=== PATIENT | female | born 1960 | race African-American/Black ===

== ENCOUNTER → 2016-11-18 | Outpatient (CLI) | payer BC ==
[~2016-11-18] VITALS: Ht 157.5 cm; Wt 127.9 kg
[~2016-11-18] MED LIST: AMLO10TA4 PO; AMLO5TAB4 PO; Aspirin PO; Hydrochlorothiazide PO; LIDOCAINE 1% / SOD BICARB 8.4% 20 ML VIAL. IJ ONE; LOSA1TAB16 PO; LOSA1TAB17 PO; LOSA50TA2 PO; METF1000 PO
[2016-11-18 13:53] VITALS: BP 157/75
--- NOTE | 2016-11-18 16:27 | RAD ---
EXAM: Ultrasound guided fine-needle laceration of the right thyroid nodule. HISTORY: Right thyroid nodule. Ultrasound-guided fine-needle aspiration is requested. COMPARISON: None. FINDINGS: The procedure along with its risks and benefits were explained to the patient. She agreed to proceed. A timeout procedure was performed. Sonographic images of the right thyroid lobe reveals a 3.2 x 2.3 x 2.3 cm hypoechoic, predominantly solid nodule in the right thyroid interpolar region. The overlying skin was sterilely prepped and infiltrated with 1% lidocaine for local anesthesia. Under ultrasound guidance, 4 passes were made into the nodule using 25-gauge needles. One pass was made using echotexture 5. These were hand delivered to pathology. Instrumentation was withdrawn and a sterile dressing placed. There were no complications. IMPRESSION: 1. Successful ultrasound guided fine-needle aspiration of a right thyroid nodule.
== END | disposition home or self-care (01) ==
LOC: US 13:30
PROVIDERS: ATTEND Surgery
DX: E04.1 Nontoxic single thyroid nodule (principal)
CPT/HCPCS: 60300; 76942

== ENCOUNTER 2018-02-05 16:22 | Emergency (ER) | payer OTHER, BC ==
[2018-02-05] MEDS: HYDROcodone/APAP 5/325MG 1 TAB TABLET PO (18:09)
[2018-02-05] MEDS: NAPROXEN 500 MG TABLET PO (18:10)
== END 2018-02-05 19:10 | disposition home or self-care (01) ==
LOC: ER 19:10
DX: S63.617A Unspecified sprain of left little finger, initial encounter (principal); S40.012A Contusion of left shoulder, initial encounter; I10 Essential (primary) hypertension; E11.9 Type 2 diabetes mellitus without complications; M19.012 Primary osteoarthritis, left shoulder; Z88.8 Allergy status to other drugs, medicaments and biological substances; Z91.041 Radiographic dye allergy status; W01.0XXA Fall on same level from slipping, tripping and stumbling without subsequent striking against object, initial encounter; Y93.89 Activity, other specified; Y99.8 Other external cause status; Y92.214 College as the place of occurrence of the external cause
CPT/HCPCS: 29130; 73030; 73130; 99284-25

== ENCOUNTER → 2021-01-05 | Outpatient (CLI) | payer MEDICARE, OTHER ==
[2018-02-05 17:00] VITALS: BP 188/107
[~2021-01-05] MED LIST changes: +CYCL10TA2 PO; +GABA300C18 PO; +HYDR-2145 PO; +HYDR-3164 PO; -LIDOCAINE 1% / SOD BICARB 8.4% 20 ML VIAL. IJ ONE; +LOSA-73 PO; -LOSA1TAB16 PO; -LOSA1TAB17 PO; +LOSA1TAB19 PO; +LOSA1TAB22 PO; -LOSA50TA2 PO; +NAPR500T8 PO; +OXYB10TA26 PO
--- NOTE | 2021-01-05 13:15 | PDOC1 ---
INITIAL PAIN CONSULT DATE OF SERVICE: DOS: DATE: 01/05/21 TIME: 13:10 CHIEF COMPLAINT: Chief Complaint: Low back and right lower extremity pain HISTORY OF PRESENT ILLNESS: 60-year-old female presents history of pain low back right lower extremity since June 2020 patient reports it started gradually not the result of any specific injury or accident that she is aware but increasing now across the low back into the right lower extremity mostly posterior gluteus posterior lateral thigh lateral anterior thigh anteromedial thigh into the ankle into the big toe on the right foot. Patient reports is worse with walking standing changing positions describes as numbness and radiating pain that sharp and aching in the back and shooting into the right lower extremity patient reports no significant pain in the left lower extremity but across the low back bilaterally patient reports it wakes her from sleep about 2-3 times at night can affect her bowel bladder control but no incontinence, does affect her ability to walk using a cane or roller walker when she can has a cane with her today. Patient had physical therapy also chiropractic treatment most recently which made the pain actually worse she also tried oral steroids, hydrocodone and Mobic as well as Neurontin the Mobic helped some but the hydrocodone Neurontin and steroids were not helpful. Patient continues to do stretching and strength exercises from her physical therapy daily. Patient rates her disability rating 0-10 10 being the worst is a 7 with him home responsibilities recreation social activity 8 with occupation 9 with self-care and 5 with life support activities. Patient did have an MRI scan lumbar spine showing multilevel degenerative changes significant central and lateral stenosis from L3-4 through L5-S1 with severe central and lateral stenosis at L4-5 broad-based disc bulging compression of the L5 nerve roots in the lateral recesses as well as the exiting L4 nerve roots in the foramina bilaterally left greater than right. PAST MEDICAL HISTORY: PMH: Arthritis, hypertension, obesity, type 2 diabetes, cigarette smoking PREVIOUS SURGERIES: Past Surgical Hx: Left rotator cuff repair x2, tubal ligation, tonsillectomy CURRENT MEDICATIONS: Current Meds: Active Scripts Medications Dose Route/Sig Max Daily Dose Days Date Category Gabapentin (Gabapentin) 300 Mg Capsule 300 Mg PO TID 01/05/21 Reported Oxybutynin Chloride Er (Oxybutynin Chloride) 10 Mg Tab.er.24 1 Tab PO DAILY 01/05/21 Reported Hydrochlorothiazide Tablet (Hydrochlorothiazide) 25 Mg Tablet 25 Mg PO DAILY 01/05/21 Reported Norvasc (Amlodipine Besylate) 10 Mg Tablet 10 Mg PO DAILY 11/18/16 Reported Losartan-Hctz 100-25 Mg Tab (Losartan/Hydrochlorothiazide) 1 Each Tablet 1 Each PO DAILY 11/18/16 Reported Glucophage (Metformin Hcl) 1,000 Mg Tablet 1 Tab PO BID 04/20/15 Reported ALLERGIES; Allergies: Coded Allergies: Mpiumpg-Sum-Ids Reductase Inhibitor (Unverified Allergy, Intermediate, MUSCLE PAIN, 05/13/16) lisinopril (Verified Allergy, Intermediate, cough, 05/13/16) FAMILY HISTORY: Family Hx: Hypertension, diabetes SOCIAL HISTORY: Social Hx: Patient is under alcohol quit smoking 2015 does not use any illegal illicit recreational drugs single lives 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 PHYSICAL EXAM: VS: Blood pressure is 175/92 pulse 84 respirations 16 temperature is 98.2 F height is 5 feet 2 inches weight is 326 pounds PE: PHYSICAL EXAMINATION: GENERAL: The patient is awake, alert, oriented, appropriate, very pleasant demeanor HEENT: Shows normocephalic, atraumatic. Extraocular movements are intact and symmetrical. Oral cavity: Mucous membranes moist and pink. Dentition is intact. NECK: Shows anterior throat supple without palpable lymphadenopathy noted. Swallow reflex symmetrical. CHEST: Shows normal on inspection. Breath sounds are clear bilaterally, distant but no rales rhonchi or wheezes auscultated. HEART: Shows S1, S2 clear. No murmurs auscultated. ABDOMEN: Soft, nontender, nondistended, obese. No palpable organomegaly is noted. No rebound or guarding demonstrated. BACK: Shows spine grossly in the midline. Normal-appearing cervical lordotic curvature. There is slightly increased thoracic kyphosis, some minor flattening of the lumbar lordotic curvature. Lumbar paraspinous muscles show symmetrical on inspection, on palpation shows some moderate tenderness diffusely throughout the upper, middle and lower distribution of the paraspinous muscles bilaterally and also into the lower thoracic paraspinous musculature, firm and tender, but without specific trigger points, without radiation of pain. The patient has good rotational motion of the lumbar spine, both laterally as well as extension and flexion without significant difficulty. No tenderness over the spinous processes, sacrum or sacroiliac regions. EXTREMITIES: Lower extremities show deep tendon reflexes 1+ in the patellar and tendo calcaneus tendons. Motor exam is 4 on a scale of 5 with right dorsiflexion, extension, quadriceps and hamstring flexion and 5/5 on the left. Peripheral pulses are 1+ posterior tibial. No peripheral edema is noted bilaterally. Lower extremities are warm and dry to touch, equal in color and appearance. Straight leg raise noted to be positive on the right about 35 degrees, left side is []. Gaenslen's and Donn's maneuvers are negative bilaterally as well. The patient is able to stand, stand on her toes that see if difficulty loss of balance walks with a shuffling gait does appear to favor the right lower extremity to a fair extent, using a cane in her left hand to ambulate. SKIN: Shows warm and dry, good turgor. No edema. No sores, rashes or bruising throughout. IMPRESSION: Impression: 60-year-old female with 6-month history low back right lower extremity pain and radicular fashion MRI scan lumbar spine as noted Obesity Hypertension Arthritis Diabetes Plan: Options were discussed with patient including conservative medical management physical therapies interventional techniques. Patient elects interventional techniques. We discussed a lumbar epidural steroid ejections description as well as anatomical models described procedure. Patient wait for preauthorization with her insurance provider and we will plan on translaminar L4-5 level lumbar epidural steroid injection once this is obtained. In the meantime patient will continue with Mobic 15 mg patient was given instructions well side effects aware with the medication, and daily exercises and stretching as she is currently doing. SORAYA JAY MD Jan 05, 2021 13:15
== END | disposition home or self-care (01) ==
LOC: PNCL 10:38
PROVIDERS: ATTEND Anesthesiology
DX: M54.5 Low back pain (principal); M79.604 Pain in right leg; M19.90 Unspecified osteoarthritis, unspecified site; I10 Essential (primary) hypertension; E11.9 Type 2 diabetes mellitus without complications; E66.9 Obesity, unspecified; G47.30 Sleep apnea, unspecified; Z87.891 Personal history of nicotine dependence; Z98.51 Tubal ligation status; Z98.890 Other specified postprocedural states; Z79.84 Long term (current) use of oral hypoglycemic drugs; Z79.899 Other long term (current) drug therapy; Z88.8 Allergy status to other drugs, medicaments and biological substances; Z82.49 Family history of ischemic heart disease and other diseases of the circulatory system; Z83.3 Family history of diabetes mellitus
CPT/HCPCS: G0463

== ENCOUNTER → 2021-01-19 | Outpatient (CLI) | payer OTHER ==
[2018-02-05 17:00] VITALS: BP 188/107
[~2021-01-19] MED LIST changes: +IOHEXOL 180 MG/ML 10 ML VIAL. ONE; +methylPREDNISolone ACETATE 40 MG/ML VIAL. ONE; +methylPREDNISolone ACETATE 80 MG/ML VIAL. ONE
--- NOTE | 2021-01-19 10:05 | PDOC4 ---
PROCEDURE Procedure Patient was consented for lumbar epidural steroid injection. Risks were dis cussed including but not limited to: Bleeding, infection, possibility of epidural hematoma and subsequent neurological compromise, dural puncture, headaches, spinal cord and/or nerve damage, side effects of steroid medication, and poor results regarding pain control. Patient understands and wished to proceed. Procedure is lumbar epidural steroid injection under local anesthetic using sterile prep and drape at the L4-5 level using C-arm fluoroscopic guidance in both AP and lateral views medications injected is 120 mg Depo-Medrol + 10 mL preservative-free normal saline and 2 mL contrast- condition at discharge is stable patient tolerated procedure well had no complications. SORAYA JAY MD Jan 19, 2021 10:05
--- NOTE | 2021-01-19 10:05 | PDOC ---
Progress Note - Pain Clinic Date of Service: DOS: DATE: 01/19/21 TIME: 10:02 Diagnosis: Dx: Lumbar radiculopathy with lumbar degenerative disc disease and lumbar spinal stenosis History or Present Illness: HPI: 60-year-old female returns follow-up status post initial evaluation preauthorization for lumbar epidural steroid injection. Patient is obtained this now would like to proceed. Patient reports still significant pain in the low back and bilateral lower extremities worse on the right than the left with walking standing changing positions. Patient reports has been using her walker more frequently instead of a cane as she feels more stable with this and has it with her today. Patient describes the pain as tingling and burning in the low back radiating shooting the legs mostly on the right side posterior gluteus lateral thigh anterior thigh medial thigh medial lower legs patient reports radiating constant with activity better with sitting or laying down but has been waking her from sleep about every 2-3 hours over the past week or so patient reports her pain over the past weeks been a 10 on scale 10 is worst 8 on average 8 its least as an 8 today. Patient reports no new motor or sensory deficits no new bowel or bladder incontinence or other complaints. Physical Exam: VS: Blood pressure is 132/77 pulse 87 respiration 16 temperature 98.1 F weight is 325 pounds PE: PHYSICAL EXAMINATION: GENERAL: The patient is awake, alert, oriented, appropriate, very pleasant demeanor HEENT: Shows normocephalic, atraumatic. Extraocular movements are intact and symmetrical. Oral cavity: Mucous membranes moist and pink. NECK: Shows anterior throat supple without palpable lymphadenopathy noted. Swallow reflex symmetrical. CHEST: Shows normal on inspection. Breath sounds are clear bilaterally. HEART: Shows S1, S2 clear. No murmurs auscultated. ABDOMEN: Soft, nontender, nondistended, obese. No palpable organomegaly is noted. BACK: Shows spine grossly in the midline. Normal-appearing cervical lordotic curvature. There is slightly increased thoracic kyphosis, some minor flattening of the lumbar lordotic curvature. Lumbar paraspinous muscles show symmetrical on inspection, on palpation shows some moderate tenderness diffusely throughout the upper, middle and lower distribution of the paraspinous muscles, but without specific trigger points, without radiation of pain. The patient has good rotational motion of the lumbar spine, both laterally as well as extension and flexion without significant difficulty. No tenderness over the spinous processes, sacrum or sacroiliac regions. EXTREMITIES: Lower extremities show deep tendon reflexes 1 in the patellar and tendo calcaneus tendons. Motor exam is 4 on a scale of 5 with right dorsiflexio n, extension, quadriceps and hamstring flexion and 5/5 on the left. Peripheral pulses are 1 posterior tibial. No peripheral edema is noted bilaterally. Lower extremities are warm and dry to touch, equal in color and appearance. SKIN: Shows warm and dry, good turgor. No edema. No sores, rashes or bruising throughout. Procedure: Procedure: Options discussed with the patient. Patient chart reviews her current medication regimen updated current review of systems updated today as well. We will proceed with a lumbar epidural steroid injection stable fluoroscopic guidance. Risks were discussed including but not limited to: Bleeding, infection, possibility of epidural hematoma and subsequent neurological compromise, dural puncture, headaches, spinal cord and/or nerve damage, side effects of steroid medication, and poor results regarding pain control. Patient understands and wished to proceed. Patient will return to clinic in approximately 2 weeks for follow-up, was counseled as to return appointment activity level and side effects to be aware of. Medication Injected: Med Injected: Procedure is lumbar epidural steroid injection under local anesthetic using sterile prep and drape at the L4-5 level using C-arm fluoroscopic guidance in both AP and lateral views medications injected is 120 mg Depo-Medrol + 10 mL preservative-free normal saline and 2 mL contrast- condition at discharge is stable patient tolerated procedure well had no complications. Condition at Discharge: Condition at Discharge: Condition at discharge stable, patient already the procedure well and had no complications. SORAYA JAY MD Jan 19, 2021 10:05
== END | disposition home or self-care (01) ==
LOC: PNCL 09:10
PROVIDERS: ATTEND Anesthesiology
DX: M51.16 Intervertebral disc disorders with radiculopathy, lumbar region (principal); M48.061 Spinal stenosis, lumbar region without neurogenic claudication; I10 Essential (primary) hypertension; E11.9 Type 2 diabetes mellitus without complications; G47.30 Sleep apnea, unspecified; Z98.51 Tubal ligation status; Z98.890 Other specified postprocedural states; Z79.899 Other long term (current) drug therapy; Z87.891 Personal history of nicotine dependence; Z88.8 Allergy status to other drugs, medicaments and biological substances
CPT/HCPCS: 62323; J1030; J1040; Q9965

== ENCOUNTER → 2021-02-02 | Outpatient (CLI) | payer OTHER ==
[2018-02-05 17:00] VITALS: BP 188/107
[~2021-02-02] MED LIST changes: -IOHEXOL 180 MG/ML 10 ML VIAL. ONE; +MELO15TA6 PO; -methylPREDNISolone ACETATE 40 MG/ML VIAL. ONE; -methylPREDNISolone ACETATE 80 MG/ML VIAL. ONE
--- NOTE | 2021-02-02 09:35 | PDOC ---
Progress Note - Pain Clinic Date of Service: DOS: DATE: 02/02/21 TIME: 09:32 Diagnosis: Dx: Lumbar radiculopathy with lumbar degenerative disc disease and lumbar spinal stenosis History or Present Illness: HPI: 60-year-old female returns for follow-up status post lumbar epidural steroid traction x1. Patient reports about 99% improvement after the first injection still lasting even for the past 2 weeks patient reports currently improved to that level of pain is not returning significantly she is having some pain returning in the right leg however which is more noticeable than the back. Patient reports is a 4 to scale 10 is worse over the past week 3 on average 0 its least and is a 3 today patient ports aching and tingling in the right lower extremity posterior gluteus lateral thigh anterior thigh medial thigh medial lower leg again significantly improved and still doing quite well overall but the pain today inching up but daily with activity patient reports he is doing much better with distance walking doing household activities sleeping with greater ease and comfort is not awaken her from sleep anymore and is travel with greater ease as well patient still has a cane with her she is using her left hand. Patient reports no new motor or sensory deficits no new bowel or bladder incontinence or other complaints patient continues to take Mobic daily as well as occasional Motrin on top of this when the pain is increased but overall has been doing much better for the past few weeks after the injection. Patient continues with stretching and strength exercises on her own as well and she is able to do these much more effectively since the injection, by her report. Physical Exam: VS: Blood pressure is 140/78 pulse 83 respirations 20 temperature 97.9 F weight is 320 pounds PE: PHYSICAL EXAMINATION: GENERAL: The patient is awake, alert, oriented, appropriate, very pleasant demeanor HEENT: Shows normocephalic, atraumatic. Extraocular movements are intact and symmetrical. Oral cavity: Mucous membranes moist and pink. Dentition is intact. NECK: Shows anterior throat supple without palpable lymphadenopathy noted. Swallow reflex symmetrical. CHEST: Shows normal on inspection. Breath sounds are clear bilaterally, no rales or rhonchi bilaterally. HEART: Shows S1, S2 clear. No murmurs auscultated. ABDOMEN: Soft, nontender, nondistended, obese. No palpable organomegaly is noted. No rebound or guarding demonstrated. BACK: Shows spine grossly in the midline. Normal-appearing cervical lordotic curvature. There is slightly increased thoracic kyphosis, some minor flattening of the lumbar lordotic curvature. Lumbar paraspinous muscles show symmetrical on inspection, on palpation shows some moderate tenderness diffusely throughout the upper, middle and lower distribution of the paraspinous muscles, but without specific trigger points, without radiation of pain. The patient has good rotational motion of the lumbar spine, both laterally as well as extension and flexion without significant difficulty. EXTREMITIES: Lower extremities show deep tendon reflexes 1+ in the patellar and tendo calcaneus tendons. Motor exam is 4 on a scale of 5 with right dorsiflexion, extension, quadriceps and hamstring flexion and 5/5 on the left. Peripheral pulses are 1+ posterior tibial. No peripheral edema is noted bilaterally. Lower extremities are warm and dry to touch, equal in color and appearance. SKIN: Shows warm and dry, good turgor. No edema. No sores, rashes or bruising throughout. Procedure: Procedure: Options discussed with the patient. Patient chart was reviewed as her current medication regimen updated current review of systems updated today as well. We will preauthorize patient for a second lumbar epidural steroid injections doing quite well with the pain returning in a radicular pattern L4-5 dermatomal distribution on the right gradually. In the meantime patient will continue with stretching and strength exercises oral analgesics anti-inflammatories as jordy short. Once approved, patient will return for translaminar approach L4-5 level lumbar epidural steroid injection with fluoroscopic guidance. Medication Injected: Med Injected: None Condition at Discharge: Condition at Discharge: Condition at discharge is stable. SORAYA JAY MD February 02, 2021 09:35
== END | disposition home or self-care (01) ==
LOC: PNCL 08:42
PROVIDERS: ATTEND Anesthesiology
DX: M51.16 Intervertebral disc disorders with radiculopathy, lumbar region (principal); M48.061 Spinal stenosis, lumbar region without neurogenic claudication; I10 Essential (primary) hypertension; G47.30 Sleep apnea, unspecified; Z98.51 Tubal ligation status; Z87.891 Personal history of nicotine dependence; Z88.8 Allergy status to other drugs, medicaments and biological substances; Z79.899 Other long term (current) drug therapy; Z79.84 Long term (current) use of oral hypoglycemic drugs
CPT/HCPCS: G0463